=== PATIENT | female | born 1960 | race Caucasian/White ===

== ENCOUNTER → 2016-03-18 | Day surgery (SDC) | payer OTHER ==
[~2016-03-18] MED LIST: BUPIVACAINE LIPOSOME PF 1.3% 20 ML VIAL ONE; BUPIVACAINE/EPINEPHRINE 0.25% 50 ML VIAL ONE; CIPR500T2 PO; CYCL5TAB PO; HYDR-2376 PO; ISOSULFAN BLUE 50 MG/5 ML VIAL SQ ONE; ISTA0.5S EACH EYE; LACTATED RINGER'S 1000 ML INJ 1,000 ML ONE; METR500T10 PO; MIDAZOLAM HCL 2 MG/2 ML VIAL ONE; MORP1TAB25 PO; ONDANSETRON HCL 4 MG/2 ML VIAL IV PUSH ONE; PROPOFOL 100 MG/10 ML INJ IV ONE; SODIUM CHLORIDE 0.9% 20 ML VIAL ONE; SODIUM CHLORIDE 0.9% INJ 10 ML ONE; XALA0.00 EACH EYE; ceFAZolin 2 GM PREMIX 50 ML ONE
--- NOTE | 2016-03-18 19:34 | TN ---
cc: NURY MISHRA DATE OF SURGERY 03/18/16 PREOPERATIVE DIAGNOSIS Left-sided breast cancer status post neoadjuvant chemotherapy. POSTOPERATIVE DIAGNOSIS Left-sided breast cancer status post neoadjuvant chemotherapy. PROCEDURE 1. Left needle-localized lumpectomy left retroareolar breast 2. Left axillary sentinel lymph node biopsy. ANESTHESIA General and local anesthetic ATTENDING SURGEON Shadi Mishra MD CATH LAB RADIOLOGY TECHNICIAN Staff. FINDINGS Clip in the specimen on radiologic evaluation. Grossly no tumor. Just dense breast tissue of the left breast, some scarred and matted lymph nodes in the left axilla that were palpable and hot on lymphoscintigraphy. COMPLICATIONS None BLOOD LOSS 25 mL INDICATIONS FOR PROCEDURE The patient is a 55-year-old female recently diagnosed left-sided breast cancer. The patient was found to have her2/ positive disease and has undergone Herceptin and neoadjuvant chemotherapy. The patient had a complete response radiologically and needle lumpectomy at the side of the previous tumor and sentinel node biopsy is recommended. Risks, benefits, alternatives of the procedures were explained to the patient in detail prior to the procedure and patient agreed to undergo the procedure. PROCEDURE IN DETAIL After informed was obtained, the patient was taken to the operating room and placed in a supine position, placed under general anesthesia. The patient has undergone needle localization and sentinel lymph node lymphoscintigraphy prior earlier in the day. Left breast was prepped and draped in sterile fashion. Time-out was performed. We did not use any blue dye. A sentinel lymph node was performed first. We used Exparel local anesthetic below the axillary hairline and excised this with a 7 blade scalpel for approximately 3 cm. We used Bovie electrocautery to dissect to the subcu tissue and into the clavipectoral fascia. We quickly and easily identified palpable lymph node in the left axilla that was hot and palpable. There was at least one other small lymph node that was sort of matted to this which was taken as well. They were both taken with the Bovie electrocautery and with a 3-0 Vicryl at the hilum of the node. This was passed off for permanent section. The background was minimal. We had excellent hemostasis with Bovie electrocautery. We closed the clavipectoral fascia with a running 3-0 Vicryl and the skin with 4-0 Monocryl and Dermabond. At this point in time, we turned our attention to the lumpectomy. The needle localization in the left upper quadrant of left breast was extended approximately 2.5 cm. This was a horizontal skin incision and we used the Bovie electrocautery to dissect through the subcutaneous tissue into the breast itself. Once we were approximately 2 cm away from the tip based on the needle localization, we formed a lumpectomy core 360 degrees around the needle generously. This was oriented stitch superior and a long stitch lateral and passed off for permanent processing as well as radiologic evaluation. The radiologic eval showed that the clip was in good position in the lumpectomy specimen. There were multiple areas of dense breast tissue, likely a scar from a previous neoadjuvant treatment and I did elect to go ahead and take a few extra margins at this time as the lumpectomy was small and it had a lot of scarring around this cavity. We did make superior, inferior, medial, anterior and posterior margins. We did not take any lateral margins as we had a very generous lateral margin at the wire site. We then marked the stitch a free margin and passed off for permanent processing. We had excellent hemostasis. We irrigated out the cavity. We then closed the breast tissue with [id number] Vicryl sutures followed by a 4-0 Monocryl and Dermabond in the skin. Exparel was used prior to the incision as well as at the end. The Exparel was injected into the lumpectomy cavity as well. At this point in time, the patient was discontinued from anesthesia and taken to the PACU in stable condition. The patient tolerated the procedure well. No apparent complications. All counts were correct and I was present and scrubbed for the entire procedure. MD DEMETRI Potter/ /3:58 PM /7:14 PM
== END | disposition home or self-care (01) ==
LOC: ESDC 10:13
PROVIDERS: ATTEND Surgery
DX: C50.912 Malignant neoplasm of unspecified site of left female breast (principal)
CPT/HCPCS: 00400; 01610; 19125; 38525; C9290; J0690; J2250; J2405; J3010; J7120; Q9968; 88307